=== PATIENT | female | born 1940 | race Caucasian/White ===

== ENCOUNTER 2021-12-16 12:00 | Emergency (ER) | payer MEDICARE ==
[~2021-12-16] VITALS: Ht 160 cm; Wt 82.8 kg
[2021-12-16 12:32] LABS: CLARITY,URINE CLEAR (Clear); COLOR,URINE YELLOW (Yellow); GLUCOSE, URINE NEGATIVE (Neg); KETONES,URINE NEGATIVE (Neg); LEUKOCYTE ESTERASE ,URINE SMALL (Neg); NITRITES, URINE NEGATIVE (Neg); OCCULT BLOOD,URINE SMALL (Neg); PROTEIN,URINE NEGATIVE (Neg); UROBILINOGEN,URINE 0.2 E.U/dL (0.2-1.0)
[2021-12-16 12:32] LABS: BASOPHILS # (AUTO) 0.1 X10'3 (0-0.2); BASOPHILS % (AUTO) 0.7 % (0-1); EOSINOPHILS # (AUTO) 0.1 X10'3 (0-0.9); EOSINOPHILS % (AUTO) 0.8 % (0-6); HEMOGLOBIN 13.5 g/dl (12.0-16.0); LYMPHOCYTES # (AUTO) 2.1 X10'3 (1.1-4.8); LYMPHOCYTES % (AUTO) 22.8 % (21-51); MEAN CORPUSCULAR HEMOGLOBIN 31.5 PG (27.0-31.0); MEAN CORPUSCULAR HGB CONC 33.7 g/dL (33.0-36.5); MEAN CORPUSCULAR VOLUME 93.5 FL (78-98); MEAN PLATELET VOLUME 7.4 FL (7.4-10.4); MONOCYTES # (AUTO) 0.8 X10'3 (0-0.9); NEUTROPHILS # (AUTO) 6.1 X10'3 (1.8-7.7); NEUTROPHILS % (AUTO) 66.7 % (42-75); PLATELET COUNT 286 X10'3 (140-440); RED BLOOD COUNT 4.28 X10'6 (4.20-5.60); RED CELL DISTRIBUTION WIDTH 12.9 % (11.5-14.5); WHITE BLOOD COUNT 9.1 X10'3 (4.5-11.0)
[2021-12-16 12:39] LABS: UA COLLECTION TYPE CLN CATCH MIDSTREAM
[2021-12-16 12:40] LABS: BACTERIA,URINE FEW /HPF (Neg); MUCUS STRANDS FEW /LPF (Neg); RBC,URINE 0-2 /HPF (0-2); SQUAMOUS EPITHELIAL CELL,UR MODERATE /LPF (FEW); WBC,URINE 0-4 /HPF (0-4)
[2021-12-16 12:50] LABS: ALANINE AMINOTRANSFERASE 23 U/L (12-78); ALBUMIN 3.7 G/DL (3.4-5.0); ALBUMIN/GLOBULIN RATIO 0.8 (1.1-1.5); ALKALINE PHOSPHATASE 107 IU/L (46-116); ANION GAP 9 (8-16); ASPARTATE AMINO TRANSFERASE 20 U/L (10-37); BILIRUBIN,TOTAL 0.5 MG/DL (0.1-1.0); BLOOD UREA NITROGEN 19 MG/DL (7-18); BUN/CREATININE RATIO 17.6 (6.6-38.0); CALCIUM 9.5 MG/DL (8.5-10.1); CHLORIDE 103 MMOL/L (99-107); CREATININE 1.08 MG/DL (0.40-0.90); GLUCOSE 93 MG/DL (70-104); LIPASE 235 U/L (73-393); POTASSIUM 4.7 MMOL/L (3.5-5.1); SODIUM 139 MMOL/L (135-145); TOTAL CARBON DIOXIDE 27.1 MMOL/L (24-32); TOTAL PROTEIN 8.1 G/DL (6.4-8.2); eGFR 49 ML/MIN
--- NOTE | 2021-12-16 13:16 | NUR ---
pt requesting meds for pain, will inform provider.
--- NOTE | 2021-12-16 13:45 | NUR ---
provider at bedside.
--- NOTE | 2021-12-16 14:10 | NUR ---
pt to/from ct without incident.
[2021-12-16 15:30] VITALS: BP 168/70
[2021-12-16] MEDS ORDERED: GABA100C PO (15:31)
== END 2021-12-16 16:10 | disposition home or self-care (01) ==
LOC: ER 12:01
DX: R10.32 Left lower quadrant pain (principal); R19.7 Diarrhea, unspecified; K59.09 Other constipation; Z87.01 Personal history of pneumonia (recurrent); Z90.49 Acquired absence of other specified parts of digestive tract; Z79.899 Other long term (current) drug therapy
CPT/HCPCS: 36415; 74176; 80053; 81001; 83690; 85025; 87088; 99284

== ENCOUNTER 2022-06-08 17:02 | Emergency (ER) | payer MEDICARE, OTHER ==
[~2022-06-08] VITALS: Ht 160 cm; Wt 77.3 kg
[~2022-06-08 17:02] MED LIST: GABA100C PO
[2022-06-08 17:40] VITALS: BP 126/42
[2022-06-08] MEDS ORDERED: HYDROcodone/acetaminophen 10/325mg tab PO ONE (21:40)
[2022-06-08] MEDS ORDERED: HYDR-3972 PO (21:49)
== END 2022-06-08 22:04 | disposition home or self-care (01) ==
LOC: ER 17:03
DX: S43.102A Unspecified dislocation of left acromioclavicular joint, initial encounter (principal); S41.102A Unspecified open wound of left upper arm, initial encounter; M25.512 Pain in left shoulder; Z86.711 Personal history of pulmonary embolism; Z90.49 Acquired absence of other specified parts of digestive tract; Z79.899 Other long term (current) drug therapy; W19.XXXA Unspecified fall, initial encounter; Y93.89 Activity, other specified; Y92.89 Other specified places as the place of occurrence of the external cause; Y99.8 Other external cause status
CPT/HCPCS: 29105; 70450; 72125; 73030; 73080; 99284; L3650; A6258; A6449

== ENCOUNTER 2022-10-06 16:23 | Emergency (ER) | payer MEDICARE, OTHER ==
[~2022-10-06] VITALS: Ht 160 cm; Wt 77.3 kg
[2022-10-06 16:34] VITALS: BP 177/71
[2022-10-06] MEDS ORDERED: NIRM1TAB PO ×2 (18:28)
[2022-10-07] MEDS ORDERED: NIRM1TAB PO (09:31)
== END 2022-10-06 18:58 | disposition home or self-care (01) ==
LOC: ER 16:23
DX: U07.1 COVID-19 (principal); Z79.899 Other long term (current) drug therapy
CPT/HCPCS: 87635; 99283; C9803

== ENCOUNTER 2022-10-24 14:56 | Emergency (ER) | payer OTHER ==
[~2022-10-24] VITALS: Ht 160 cm; Wt 79.5 kg
[~2022-10-24 14:56] MED LIST changes: +NIRM1TAB PO
[2022-10-24 15:06] VITALS: BP 156/96
[2022-10-24 15:40] LABS: BASOPHILS % (AUTO) 0.2 % (0-1); EOSINOPHILS # (AUTO) 0.1 X10'3 (0-0.9); EOSINOPHILS % (AUTO) 0.8 % (0-6); HEMATOCRIT 39.4 % (35.0-45.0); LYMPHOCYTES # (AUTO) 1.2 X10'3 (1.1-4.8); LYMPHOCYTES % (AUTO) 12.7 % (21-51); MEAN CORPUSCULAR HGB CONC 32.9 g/dL (33.0-36.5); MEAN CORPUSCULAR VOLUME 94.2 FL (78-98); MEAN PLATELET VOLUME 8.1 FL (7.4-10.4); MONOCYTES # (AUTO) 0.9 X10'3 (0-0.9); MONOCYTES % (AUTO) 9.4 % (2-12); NEUTROPHILS # (AUTO) 7.2 X10'3 (1.8-7.7); NEUTROPHILS % (AUTO) 76.9 % (42-75); PLATELET COUNT 319 X10'3 (140-440); RED BLOOD COUNT 4.18 X10'6 (4.20-5.60); RED CELL DISTRIBUTION WIDTH 13.7 % (11.5-14.5); WHITE BLOOD COUNT 9.4 X10'3 (4.5-11.0)
[2022-10-24 15:57] LABS: ALANINE AMINOTRANSFERASE 47 U/L (12-78); ALBUMIN 3.5 G/DL (3.4-5.0); ALBUMIN/GLOBULIN RATIO 0.8 (1.1-1.5); ALKALINE PHOSPHATASE 101 IU/L (46-116); ANION GAP 10 (8-16); ASPARTATE AMINO TRANSFERASE 23 U/L (10-37); BILIRUBIN,TOTAL 0.4 MG/DL (0.1-1.0); BLOOD UREA NITROGEN 39 MG/DL (7-18); BUN/CREATININE RATIO 24.1 (6.6-38.0); CALCIUM 9.1 MG/DL (8.5-10.1); CHLORIDE 95 MMOL/L (99-107); CREATININE 1.62 MG/DL (0.40-0.90); GLUCOSE 119 MG/DL (70-104); MAGNESIUM 2.1 MG/DL (1.5-2.4); POTASSIUM 3.5 MMOL/L (3.5-5.1); SODIUM 132 MMOL/L (135-145); TOTAL CARBON DIOXIDE 26.7 MMOL/L (24-32); TOTAL PROTEIN 7.7 G/DL (6.4-8.2); eGFR 31 ML/MIN
[2022-10-24] MEDS ORDERED: TRAM50TA2 PO (19:53)
== END 2022-10-24 19:57 | disposition home or self-care (01) ==
LOC: ER 14:57
DX: M25.512 Pain in left shoulder (principal); Z90.49 Acquired absence of other specified parts of digestive tract
CPT/HCPCS: 36415; 71045; 80053; 83735; 83880; 84484; 85025; 93005; 99285

== ENCOUNTER 2022-12-08 11:47 | Emergency (ER) | payer OTHER ==
[~2022-12-08] VITALS: Ht 167.6 cm; Wt 77.3 kg
[2022-12-08 11:55] VITALS: BP 172/90
[2022-12-08] MEDS ORDERED: PRED50TA PO (13:50)
[2022-12-08] MEDS ORDERED: AZIT-31 PO (13:50)
[2022-12-08] MEDS ORDERED: ALBU8HFA PO (13:50)
[2022-12-08] MEDS ORDERED: HYDR-3965 PO (13:50)
== END 2022-12-08 14:32 | disposition home or self-care (01) ==
LOC: ER 11:48
DX: R05.9 Cough, unspecified (principal); R09.81 Nasal congestion; I51.9 Heart disease, unspecified; Z79.899 Other long term (current) drug therapy; Z79.1 Long term (current) use of non-steroidal anti-inflammatories (NSAID)
CPT/HCPCS: 71045; 99284

== ENCOUNTER 2023-04-19 20:47 | Emergency (ER) | payer OTHER, MEDICAID ==
[~2023-04-19] VITALS: Ht 160 cm; Wt 81.8 kg
[~2023-04-19 20:47] MED LIST changes: +PRED50TA PO
[2023-04-19 21:13] VITALS: BP 146/71
== END 2023-04-19 22:19 | disposition left against medical advice (07) ==
LOC: ER 20:47
DX: M54.9 Dorsalgia, unspecified (principal); Z53.21 Procedure and treatment not carried out due to patient leaving prior to being seen by health care provider
CPT/HCPCS: 99281

== ENCOUNTER 2023-06-26 11:14 | Emergency (ER) | payer OTHER, MEDICAID ==
[~2023-06-26] VITALS: Ht 160 cm; Wt 79.8 kg
[2023-06-26 11:14] VITALS: BP 136/92; PULSE 90; RESP 16; TEMP 97.6; O2SAT 98
== END 2023-06-26 15:55 | disposition left against medical advice (07) ==
LOC: ER 11:14
DX: M79.605 Pain in left leg (principal); Z53.21 Procedure and treatment not carried out due to patient leaving prior to being seen by health care provider
CPT/HCPCS: 99281

== ENCOUNTER 2023-12-27 10:37 | Emergency (ER) | payer OTHER, MEDICAID ==
[~2023-12-27] VITALS: Ht 157.5 cm; Wt 80.5 kg
[2023-12-27 11:09] VITALS: BP 121/52; PULSE 96; RESP 17; TEMP 97.4; O2SAT 95
[2023-12-27 12:18] LABS: BASOPHILS % (AUTO) 0.4 % (0-1); EOSINOPHILS # (AUTO) 0.2 X10'3 (0-0.9); EOSINOPHILS % (AUTO) 1.8 % (0-6); HEMOGLOBIN 13.5 g/dl (12.0-16.0); MEAN CORPUSCULAR HEMOGLOBIN 30.6 PG (27.0-31.0); MEAN CORPUSCULAR HGB CONC 33.8 g/dL (33.0-36.5); MEAN CORPUSCULAR VOLUME 90.4 FL (78-98); MEAN PLATELET VOLUME 7.5 FL (7.4-10.4); MONOCYTES # (AUTO) 0.8 X10'3 (0-0.9); MONOCYTES % (AUTO) 8.6 % (2-12); NEUTROPHILS # (AUTO) 6.1 X10'3 (1.8-7.7); NEUTROPHILS % (AUTO) 67.2 % (42-75); PLATELET COUNT 302 X10'3 (140-440); RED BLOOD COUNT 4.42 X10'6 (4.20-5.60); RED CELL DISTRIBUTION WIDTH 15.8 % (11.5-14.5)
[2023-12-27 12:28] LABS: ALANINE AMINOTRANSFERASE 19 U/L (12-78); ALBUMIN 3.7 G/DL (3.4-5.0); ALBUMIN/GLOBULIN RATIO 0.9 (1.1-1.5); ALKALINE PHOSPHATASE 124 IU/L (46-116); ANION GAP 7 (8-16); ASPARTATE AMINO TRANSFERASE 18 U/L (10-37); BILIRUBIN,TOTAL 0.5 MG/DL (0.1-1.0); BLOOD UREA NITROGEN 27 MG/DL (7-18); CALCIUM 8.7 MG/DL (8.5-10.1); CHLORIDE 103 MMOL/L (99-107); CREATININE 1.23 MG/DL (0.40-0.90); GLUCOSE 92 MG/DL (70-104); POTASSIUM 3.7 MMOL/L (3.5-5.1); SODIUM 145 MMOL/L (135-145); TOTAL CARBON DIOXIDE 34.7 MMOL/L (24-32); TOTAL PROTEIN 7.6 G/DL (6.4-8.2); eCRCL 28 ML/MIN; eGFR 42 ML/MIN
[2023-12-27 12:35] LABS: PRO BRAIN NATRIURETIC PEPTIDE 301 PG/ML (0-450)
== END 2023-12-27 14:19 | disposition left against medical advice (07) ==
LOC: ER 10:38
DX: R07.9 Chest pain, unspecified (principal); I48.91 Unspecified atrial fibrillation
CPT/HCPCS: 36415; 71045; 80053; 83880; 84484; 85025; 93005; 99281; 99285

== ENCOUNTER 2024-07-02 20:56 | Emergency (ER) | payer OTHER, MEDICAID ==
[~2024-07-02] VITALS: Ht 160 cm; Wt 86.2 kg
[2024-07-02 21:24] VITALS: BP 143/64; PULSE 75; TEMP 97.5; O2SAT 96
[2024-07-02 23:37] VITALS: RESP 18
== END 2024-07-02 23:38 | disposition home or self-care (01) ==
LOC: ER 20:56
DX: R59.0 Localized enlarged lymph nodes (principal); M54.2 Cervicalgia; I48.91 Unspecified atrial fibrillation; Z79.899 Other long term (current) drug therapy; Z90.49 Acquired absence of other specified parts of digestive tract
CPT/HCPCS: 99281; A4565

== ENCOUNTER 2024-12-25 12:17 | Emergency (ER) | payer MEDICAID, OTHER ==
[~2024-12-25] VITALS: Ht 160 cm; Wt 85.0 kg
[2024-12-25] MEDS ORDERED: PRED20TA PO (13:52)
[2024-12-25] MEDS ORDERED: AZIT250T13 PO (13:52)
[2024-12-25 14:03] VITALS: BP 129/103; PULSE 85; RESP 17; TEMP 97.9; O2SAT 96
== END 2024-12-25 13:58 | disposition home or self-care (01) ==
LOC: ER 12:17
DX: J44.1 Chronic obstructive pulmonary disease with (acute) exacerbation (principal); I48.91 Unspecified atrial fibrillation; Z90.49 Acquired absence of other specified parts of digestive tract
CPT/HCPCS: 71045; 99283

== ENCOUNTER 2025-01-06 11:08 | Emergency (ER) | payer OTHER ==
[~2025-01-06] VITALS: Ht 160 cm; Wt 83.0 kg
[2025-01-06 12:46] VITALS: TEMP 97.6
[2025-01-06 13:05] VITALS: BP 125/53; PULSE 67; RESP 14; O2SAT 100
== END 2025-01-06 13:05 | disposition home or self-care (01) ==
LOC: ER 11:09
DX: S09.90XA Unspecified injury of head, initial encounter (principal); S39.92XA Unspecified injury of lower back, initial encounter; E11.9 Type 2 diabetes mellitus without complications; E78.5 Hyperlipidemia, unspecified; I10 Essential (primary) hypertension; I48.91 Unspecified atrial fibrillation; Z90.49 Acquired absence of other specified parts of digestive tract; W19.XXXA Unspecified fall, initial encounter; Y93.89 Activity, other specified; Y92.009 Unspecified place in unspecified non-institutional (private) residence as the place of occurrence of the external cause; Y99.8 Other external cause status
CPT/HCPCS: 70450; 72125; 99284

== ENCOUNTER 2025-02-25 15:22 | Emergency (ER) | payer OTHER ==
[~2025-02-25] VITALS: Ht 160 cm; Wt 79.0 kg
[2025-02-25 15:27] VITALS: BP 142/31; PULSE 80; TEMP 97.3; O2SAT 98
[2025-02-25 16:22] VITALS: RESP 16
--- NOTE | 2025-02-25 17:11 | Physician Documentation ---
History of Present Illness ~ Chief Complaint: Cough Stated Complaint: COUGH Time Seen by MD: 15:55 Primary Medical Doctor: Dr. Shepherd HPI Patient is seen today with complaints of productive cough and history of COPD and states she quit smoking seven years ago. Patient states he coughs so much in her cough is productive to the point where she is gagging on the sputum. Patient denies any shortness of breath currently. She states she has felt febrile with the last few days. She also admits to runny nose but denies any sore throat or abdominal pain or nausea, vomiting, diarrhea or chest pain. She has no other concern or complaint at this time. Medication Reconciliation Allergies: Coded Allergies: No Known Allergies (Unverified , 02/25/25) Scheduled Gabapentin (Neurontin), 1-2 CAP PO QHS Nirmatrelvir/Ritonavir (Paxlovid Co-Pack (Eua)), 3 EACH PO BID Prednisone (Prednisone), 1 TAB PO DAILY Past Medical History Past Medical History: Atrial Fibrillation, Pulmonary Embolism Past Surgical History: cholecystectomy Smoking Status: Former smoker Alcohol Use: None Drug Use: none Lives with: Family Lives In: Home Review of Systems Constitutional: Denies: chills, fever, weakness Eyes: Denies: pain, blurred vision ENT: Denies: ear pain, nose pain, throat pain, mouth pain Respiratory: Denies: cough, shortness of breath Cardiovascular: Denies: chest pain, palpitations Gastrointestinal: Denies: abdominal pain, nausea, vomiting Genitourinary: Denies: burning, dysuria Female Genitalia: Denies: vaginal discharge, pelvic pain Neurological: Denies: headache, dizziness Musculoskeletal: Denies: pain, swelling Integumentary: Denies: rash, lesions Allergic/Immunologic: Denies: hives, itching Hematologic/Lymphatic: Denies: no symptoms reported Psychiatric: Denies: depression, anxiety Physical Exam Vital Signs: Temperature: 97.3, Source: Temporal, Heart Rate: 80, Respiratory Rate: 16, BP: 142/31, Pulse Oximetry: 98, Weight: 79.000 Physical Exam General: Awake and Alert, no acute distress. HEENT: Conjunctiva pink, Sclera clear, Mucus Membranes moist. Neck: Supple without masses and tenderness. Resp: Unlabored. Patient on exam does have mild expiratory wheeze but is moving air well throughout and I do not appreciate any rales, rhonchi or coarse breath sounds. Heart: Regular Rate and rhythm, normal S1 and S2 with a grade 2 systolic ejection murmur, patient does not have any rub or gallop. Abdomen: Soft and non tender no organomegaly Extremities: No cyanosis,clubbing or edema. Skin: Warm and Dry. Progress Results/Orders Results/Orders Vital Signs 02/25/25 02/25/25 15:27 16:22 Temp 97.3 Pulse 80 Resp 18 16 B/P (MAP) 142/31 Pulse Ox 98 Medical Decision Making Findings Patient is seen today with complaints of productive cough and history of COPD and states she quit smoking seven years ago. Patient states he coughs so much in her cough is productive to the point where she is gagging on the sputum. Patient denies any shortness of breath currently. She states she has felt febrile with the last few days. She also admits to runny nose but denies any sore throat or abdominal pain or nausea, vomiting, diarrhea or chest pain. She has no other concern or complaint at this time. Dose of azithromycin 500 mg given by mouth in the ED today. Prescription of azithromycin 500 mg to be taken by mouth once a day for three more days sent to patient pharmacy. Patient will follow up with primary care in 2-5 days if no better as needed sooner. Return to ED with any worsening or concerning or changing symptoms. Departure Disposition: 01 HOME / SELF CARE / HOMELESS Impression: Primary Impression: Cough Qualified Codes: R05.1 - Acute cough Additional Impressions: Acute bronchitis Qualified Codes: J20.9 - Acute bronchitis, unspecified COPD exacerbation Condition: Improved Discharge Instructions: Bronchitis Additional Instructions: Dose of azithromycin 500 mg given by mouth in the ED today. Prescription of azithromycin 500 mg to be taken by mouth once a day for three more days sent to patient pharmacy. Patient will follow up with primary care in 2-5 days if no better as needed sooner. Return to ED with any worsening or concerning or changing symptoms. Referrals: NO PRIMARY CARE PROVIDER (PCP) Prescriptions Azithromycin (Zithromax) 250 Mg Tablet 2 TAB PO DAILY for 3 Days, #6 TAB Prov: MAYELIN TRIANA 02/25/25 Signature Scribe Signature: No scribe Attestation: No scribe MAYELIN TRIANA February 25, 2025 17:11
[2025-02-25] MEDS ORDERED: AZIT-164 PO (17:16)
[2025-02-25] MEDS: azithromycin 250mg tablet PO STA (17:25)
== END 2025-02-25 17:28 | disposition home or self-care (01) ==
LOC: ER 15:22
DX: J20.9 Acute bronchitis, unspecified (principal); J44.1 Chronic obstructive pulmonary disease with (acute) exacerbation; I48.91 Unspecified atrial fibrillation; Z87.891 Personal history of nicotine dependence; Z90.49 Acquired absence of other specified parts of digestive tract
CPT/HCPCS: 99283